=== PATIENT | male | born 1990 | race Caucasian/White ===

== ENCOUNTER 2022-01-10 15:24 | Emergency (ER) | payer OTHER ==
[~2022-01-10] VITALS: Ht 188 cm; Wt 120.5 kg
[~2022-01-10 15:24] MED LIST: GENTAMICIN EYE D5 ML OD; NORCO 325 MG-51 TA1 PO
[2022-01-10] MEDS ORDERED: NORCO 325 MG-51 TA1 PO (17:19)
[2022-01-10 18:00] VITALS: BP 130/78
== END 2022-01-10 18:04 | disposition home or self-care (01) ==
LOC: ED 15:24
DX: S92.341A Displaced fracture of fourth metatarsal bone, right foot, initial encounter for closed fracture (principal); F17.290 Nicotine dependence, other tobacco product, uncomplicated; W20.8XXA Other cause of strike by thrown, projected or falling object, initial encounter
CPT/HCPCS: L4386